=== PATIENT | female | born 1985 | race Caucasian/White ===

== ENCOUNTER 2019-10-09 11:28 | Outpatient (CLI) | payer MEDICAID ==
--- NOTE | 2019-10-09 13:00 | Non Stress Test Report ---
Non Stress Test Datetime Report Generated by CPN: 10/09/2019 13:00 DEMOGRAPHIC Test Number: 1 EGA NST: 34.3 INDICATION Indication for Study (NST) Other: Repeat NST and AMA MONITORING Monitor Explained: Monitor Explained; Test Explained; Patient Verbalized Understanding Time on Monitor: 10/09/2019 11:45 Time off Monitor: 10/09/2019 12:19 NST Duration: 34 NST INTERVENTIONS NST Interventions: PO Hydration Physician Notified NST: J Price CNm BABY A: [id number] BABY A Movement : Present Contraction Frequency : none FHR Baseline : 145 Accelerations : 15X15 Decelerations : None Variability : Moderate 6-25bpm NST Review: Meets Criteria for Reactive NST NST Review and Verified By : Sparkle Camp RNC NST Results: Reactive NST REPORT Report Trigger: Send Report
== END 2019-10-09 12:31 | disposition home or self-care (01) ==
LOC: LC 11:28
PROVIDERS: ATTEND Obstetrics & Gynecology
DX: O09.523 Supervision of elderly multigravida, third trimester (principal); O99.333 Smoking (tobacco) complicating pregnancy, third trimester; F17.210 Nicotine dependence, cigarettes, uncomplicated; Z3A.34 34 weeks gestation of pregnancy
CPT/HCPCS: 59025

== ENCOUNTER 2019-11-06 10:59 | Outpatient (CLI) | payer MEDICAID ==
--- NOTE | 2019-11-06 11:48 | Non Stress Test Report ---
Non Stress Test Datetime Report Generated by CPN: 11/06/2019 11:48 DEMOGRAPHIC EGA NST: 38.3 INDICATION Indication for Study (NST) Other: IUP @ 38.3 wks, AMA VITAL SIGNS Temperature - NST: 98.0 Pulse - NST: 85 RESP - NST: 16 NBPSYS NST: 128 NBPDIA NST: 68 MONITORING Monitor Explained: Monitor Explained; Test Explained; Patient Verbalized Understanding Time on Monitor: 11/06/2019 11:10 Time off Monitor: 11/06/2019 11:36 NST Duration: 26 NST INTERVENTIONS NST Interventions: PO Hydration; Reposition Patient Physician Notified NST: Munir Gooden, CNM BABY A: [id number] BABY A Movement : Present Contraction Frequency : 0 FHR Baseline : 140 Accelerations : 15X15 Decelerations : None Variability : Moderate 6-25bpm NST Review: Meets Criteria for Reactive NST NST Review and Verified By : [email or web address],rn NST Results: Reactive NST REPORT Report Trigger: Send Report
== END 2019-11-06 11:48 | disposition home or self-care (01) ==
LOC: LC 10:59
PROVIDERS: ATTEND Obstetrics & Gynecology Gynecology
DX: O10.913 Unspecified pre-existing hypertension complicating pregnancy, third trimester (principal); O09.523 Supervision of elderly multigravida, third trimester; O99.333 Smoking (tobacco) complicating pregnancy, third trimester; F17.210 Nicotine dependence, cigarettes, uncomplicated; Z3A.38 38 weeks gestation of pregnancy
CPT/HCPCS: 59025

== ENCOUNTER 2019-11-09 08:54 | Inpatient (IN) | payer MEDICAID ==
[2019-11-09] MEDS ORDERED: OXYTOCIN/0.9 % SODIUM CHLORIDE 30 UNIT/500 ML RTUINJ ONE (09:02)
[2019-11-09] MEDS ORDERED: MISOPROSTOL 0.2 MG TABLET ONE (09:02)
[2019-11-09] MEDS ORDERED: LIDOCAINE 1% INJ-PF (10 MG/ML) 30 ML SDV ONE (09:02)
[2019-11-09] MEDS ORDERED: OXYTOCIN/0.9 % SODIUM CHLORIDE 30 UNIT/500 ML RTUINJ IV PRN ×2 (09:02→20:02)
[2019-11-09] MEDS ORDERED: OXYTOCIN 10 UNIT/ML VIAL ONE (09:02)
[2019-11-09] MEDS ORDERED: RINGERS SOLUTION,LACTATED 1,000 ML IV ONE (09:02)
[2019-11-09 10:21] LABS: APPEARANCE,URINE SLIGHTLY-CLOUDY; BILIRUBIN,URINE NEGATIVE (NEGATIVE); GLUCOSE, URINE NEGATIVE (NEGATIVE); KETONES,URINE NEGATIVE (NEGATIVE); LEUKOCYTE ESTERASE,URINE TRACE (NEGATIVE); NITRITE,URINE NEGATIVE (NEGATIVE); PROTEIN,URINE 30 mg/dL (NEGATIVE); URINE SPECIFIC GRAVITY 1.019
[2019-11-09 10:34] LABS: COLOR,URINE YELLOW
[2019-11-09 10:45] LABS: URINE AMPHETAMINES SCREEN NEGATIVE; URINE BARBITURATES SCREEN NEGATIVE; URINE BENZODIAZEPINES SCREEN NEGATIVE; URINE COCAINE SCREEN NEGATIVE; URINE METHADONE SCREEN NEGATIVE; URINE PHENCYCLIDINE SCREEN NEGATIVE
[2019-11-09 10:55] LABS: URINE MARIJUANA (THC) SCREEN UNCONFIRMED POSITIVE
[2019-11-09 11:17] LABS: ABSOLUTE EOSINOPHILS # (AUTO) 0.1 10^3/uL (0.0-0.6); ABSOLUTE LYMPHOCYTES (AUTO) 2.7 10^3/uL (0.5-4.7); ABSOLUTE MONOCYTES (AUTO) 1.1 10^3/uL (0.1-1.4); ABSOLUTE NEUT (AUTO) 9.5 10^3/uL (1.7-8.2); BASOPHILS % (AUTO) 0.2 % (0-2); EOSINOPHILS % (AUTO) 1.1 % (0-6); HEMATOCRIT 34.9 % (36.0-47.0); HEMOGLOBIN 12.1 g/dL (12.0-15.5); LYMPHOCYTES % (AUTO) 20.2 % (13-45); MEAN CORPUSCULAR HEMOGLOBIN 32.5 pg (27.0-33.4); MEAN CORPUSCULAR HGB CONC 34.6 g/dL (32.0-36.0); MEAN CORPUSCULAR VOLUME 94 fl (80-97); MONOCYTES % (AUTO) 7.9 % (3-13); PLATELET COUNT 233 10^3/uL (150-450); RED BLOOD COUNT 3.72 10^6/uL (3.72-5.28); RED CELL DISTRIBUTION WIDTH 13.2 % (11.5-14.0); SEGMENTED NEUTROPHILS % (AUTO) 70.6 % (42-78); TOTAL CELLS COUNTED % (AUTO) 100 %; WHITE BLOOD COUNT 13.4 10^3/uL (4.0-10.5)
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
[2019-11-09] MEDS ORDERED: NALBUPHINE HCL INJ 10 MG/1 ML AMPULE IM ONE (16:04)
[2019-11-09] MEDS ORDERED: NALBUPHINE HCL INJ 10 MG/1 ML AMPULE ONE (16:05)
[2019-11-09] MEDS ORDERED: PROMETHAZINE HCL INJ 25 MG/1 ML VIAL ONE (16:05)
[2019-11-09] MEDS ORDERED: NALBUPHINE HCL INJ 10 MG/1 ML AMPULE IV ONE (16:05)
[2019-11-09] MEDS ORDERED: PROMETHAZINE HCL INJ 25 MG/1 ML VIAL IV ONE (16:06)
[2019-11-09] MEDS ORDERED: EPHEDRINE SULFATE INJ 50 MG/1 ML AMPULE ONE (18:30)
[2019-11-09] MEDS ORDERED: FENTANYL/BUPIVACAINE/NS/PF 0 MCG/0 ML RTUINJ EPI ONE (18:30)
[2019-11-09] MEDS ORDERED: ROPIVACAINE HCL 0.2% INJ/PF (2 MG/ML) 20 ML SDV ONE (18:30)
[2019-11-09] MEDS ORDERED: MAGNESIUM HYDROXIDE SUSP 30 ML UDCUP PO PRN (20:02)
[2019-11-09] MEDS ORDERED: BENZOCAINE/MENTHOL AEROSOL SPRAY 56 ML TOP PRN (20:02)
[2019-11-09] MEDS ORDERED: DIPHENHYDRAMINE HCL 25 MG CAPSULE PO PRN (20:02)
[2019-11-09] MEDS ORDERED: DIBUCAINE 1% OINTMENT 28 GM TP PRN (20:02)
[2019-11-09] MEDS ORDERED: GLYCERIN/WITCH HAZEL LEAF 1 EACH MED..WIPE TP PRN (20:02)
[2019-11-09] MEDS ORDERED: ACETAMINOPHEN WITH CODEINE #3 TABLET PO PRN ×2 (20:02)
[2019-11-09] MEDS ORDERED: PROMETHAZINE HCL 25 MG TABLET PO PRN (20:02)
[2019-11-09] MEDS ORDERED: ACETAMINOPHEN 650 MG SUPP.RECT PR PRN (20:02)
[2019-11-09] MEDS ORDERED: PROMETHAZINE HCL INJ 25 MG/1 ML VIAL IV PRN (20:02)
[2019-11-09] MEDS ORDERED: PROMETHAZINE HCL 25 MG SUPP.RECT PR PRN (20:02)
[2019-11-09] MEDS ORDERED: PSEUDOEPHEDRINE HCL 30 MG TABLET PO PRN (20:02)
[2019-11-09] MEDS ORDERED: DIPH/PERTUSS(ACELL)/TETANUS VAC/PF 0.5 ML SYR (>=10YO) IM PRN (20:02)
[2019-11-09] MEDS ORDERED: NA PHOS,M-B/NA PHOS,DI-BA (ADULT) 133 ML ENEMA PR PRN (20:02)
[2019-11-09] MEDS ORDERED: ZOLPIDEM TARTRATE 5 MG TABLET PO PRN (20:02)
[2019-11-09] MEDS ORDERED: MEASLES,MUMPS&RUBELLA VACC/PF 0.5 ML VIAL SUBCUT PRN (20:02)
--- NOTE | 2019-11-09 21:44 | Delivery Summary ---
Del Sum A-C Datetime Report Generated by CPN: 11/09/2019 21:43 DELIVERY PERSONNEL DELIVERY PERSONNEL: [id number] Delivery Doctor:: Baltazar Chowdhury MD Labor and Delivery Nurse:: Nilda De La Cruz RNcomposite science teacher Nurse:: Gloria Reynolds RN Denitrator/SOCIAL MEDIA ANALYST: Ana Luisa Iván, ST MATERNAL INFORMATION Delivery Anesthesia: None Medications After Delivery: Pitocin 30 Units in 500ml NS/D5W Estimated Blood Loss (ml): 250 Maternal Complications: None LABOR SUMMARY EDC: 11/17/2019 00:00 No. Babies in Womb: 1 Attempted: No LABOR INFORMATION Reason for Induction: Chronic Primary/Essential HTN Onset of Labor: 11/09/2019 12:55 Complete Dilatation: 11/09/2019 19:15 Oxytocin: Induction Group B Beta Strep: Negative Antibiotics # of Doses: 0 Antibiotics Time of Last Dose: n/a Name of Antibiotic Given: n/a Steroids Given: None Reason Steroids Not Administered: Not Applicable MEMBRANES Membranes Rupture Method: Artificial Rupture of Membranes: 11/09/2019 12:55 Length of Rupture (hr): 6.53 Amniotic Fluid Color: Clear Amniotic Fluid Amount: Moderate Amniotic Fluid Odor: Normal STAGES OF LABOR Stage 1 hr: 6 Stage 1 min: 20 Stage 2 hr: 0 Stage 2 min: 12 Stage 3 hr: 0 Stage 3 min: 12 Total Time in Labor hr: 6 Total Time in Labor min: 44 VAGINAL DELIVERY Episiotomy: None Laceration #1: Periurethral Laceration Extension #1: N/A Laceration #2: Perineal Laceration Extension #2: Second Degree Laceration #3: None Laceration Extension #3: N/A Laceration Repair: Yes Laceration Repair Note: Villa placed and the periurethral laceration was repaired with 3-0 chromic. This provided good hemostasis. The perineal laceration was closed in the usual fashion with a 3-0 chromic suture. Sponge Count Correct: Vaginal Sweep Performed Sharps Count Correct: Yes CSECTION DELIVERY Primary Indication: N/A Secondary Indication: N/A CSection Incidence: N/A Labor: N/A Elective: N/A CSection Incision: N/A BABY A INFORMATION Delivery Date/Time: 11/09/2019 19:27 Method of Delivery: Vaginal Nurse Controlled Delivery: No Born in Route : No : N/A Forceps: N/A Vacuum Extraction: N/A Shoulder Dystocia : No PRESENTATION/POSITION BABY A Presentation: Cephalic Cephalic Presentation: Vertex Vertex Position: Left Occipital Anterior Breech Presentation: N/A PLACENTA INFORMATION BABY A Placenta Delivery Time : 11/09/2019 19:39 Placenta Method of Delivery: Spontaneous Placenta Status: Delivered SCORES BABY A Heart Rate 1 min: >100 bpm Resp Effort 1 min: Good Cry Reflex Irritability 1 min: Cough or Sneeze or Pulls Away Muscle Tone 1 min: Active Motion Color 1 min: Body [place], Extremities Blue SCORE 1 MIN: 9 Heart Rate 5 min: >100 bpm Resp Effort 5 min: Good Cry Reflex Irritability 5 min: Cough or Sneeze or Pulls Away Muscle Tone 5 min: Active Motion Color 5 min: Body [place], Extremities Blue SCORE 5 MIN: 9 INFANT INFORMATION BABY A Gestational Age at Delivery: 38.6 Gestational Status: Early Term- 37- 38.6 Weeks Infant Outcome : Liveborn Condition : Stable Infant Sex: Male IDENTIFICATION BABY A Infant Verification Date/Time: 11/09/2019 20:03 ID Band Number: [id number] Mother's Name Verified: Yes Infant RN Verifying Infant: Lew Reynolds RN/ECarlos Colemank RN WEIGHT/LENGTH BABY A Infant Birthweight (gm): 3100 Infant Weight (lb): 6 Infant Weight (oz): 13 Infant Length (in): 21.00 Infant Length (cm): 53.34 CORD INFORMATION BABY A No. Cord Vessels: 3 Nuchal Cord : N/A Cord Blood Taken: Yes-For Storage (Mom's Blood type +) Suction: Mouth ASSESSMENT BABY A Infant Complications: None Physical Findings at Delivery: Within Normal Limits Infant Respirations: Appears Normal Skin to Skin: Yes Transferred To: Remains with Mother BABY B INFORMATION : N/A SIGNATURES Signature: with User ID: [email or web address] : I was personally available for consultation and serving as supervising physician for the MLP.
--- NOTE | 2019-11-09 21:44 | Birth Certificate Data ---
Cert Data Datetime Report Generated by CECILE: 11/09/2019 21:43 CERTIFICATE DATA 47a. Care: Yes (10/09/2019 11:49:Aissatou Johnson RN) 47b. Date of First Visit: 04/12/2019 00:00 (10/09/2019 11:49:Aissatou Johnson RN) 47c. Date of Last Visit: 11/06/2019 00:00 (10/09/2019 11:49:Aissatou Johnson RN) 47d. Number of Visits: 16 (10/09/2019 11:49:Aissatou Johnson RN) 48a. Number of Prev Live Births: 1 (10/09/2019 11:49:Aissatou Johnson RN) 48b. Now Livin (10/09/2019 11:49:Shanthi Hope RN) 48c. Live Births Now : 0 (10/09/2019 11:49:QS system process) 48d. Date of Last Live : 02/28/2009 00:00 (10/09/2019 11:49:Aissatou Johnson RN) 48e. Losses: 0 (10/09/2019 11:49:Aissatou Johnson RN) RISK FACTORS IN THIS 49a. Diabetes: No (10/09/2019 11:49:Shanthi Hope RN) 49b. Hypertension: No (10/09/2019 11:49:Shanthi Hope RN) Type of Hypertension: Chronic (10/09/2019 11:49:Aissatou Johnson RN) 49c. Previous Births: 0 (10/09/2019 11:49:Aissatou Johnson RN) Stillborns: No (10/09/2019 11:49:Shanthi Hope RN) IUGR: No (10/09/2019 11:49:Shanthi Hope RN) 49e. Infertility Treatment: No (10/09/2019 11:49:Shanthi Hope RN) 49f. Previous Cesareans: 0 (10/09/2019 11:49:Aissatou Johnson RN) Mother's Height 50b. Height Inches: 71 (11/09/2019 11:00:QS system process) Mother's Weight 51a. Pre- Weight: 215 (10/09/2019 11:49:Shanthi Hope RN) 51b. Weight at Time of Delivery: 222 (11/09/2019 11:00:QS system process) 52. Dt Last Normal Menses Began: 02/09/2019 00:00 (10/09/2019 11:49:Shanthi Hope RN) Infections Present/Treated 53a. Gonorrhea: No (10/09/2019 11:49:Shanthi Hope RN) Results this Hospital Visit : Negative (10/09/2019 11:49:Aissatou Johnson RN) 53b. Syphilis: No (10/09/2019 11:49:Shanthi Hope RN) Results this Hospital Visit: NONREACTIVE (11/09/2019 10:30:QS system process) 53c. Chlamydia: No (10/09/2019 11:49:Shanthi Hope RN) Results this Hospital Visit: Negative (10/09/2019 11:49:Aissatou Johnson RN) 53d. Hepatitis B: No (10/09/2019 11:49:Shanthi Hope RN) Results this Hospital Visit: Negative (10/09/2019 11:49:Aissatou Johnson RN) 53i. Date Tested: 04/12/2019 00:00 (10/09/2019 11:49:Aissatou Johnson RN) Obstetric Procedures 54a, b, c. Obstetric Procedures: Ultrasound; NST (10/09/2019 11:49:Shanthi Hope RN) Cigarette Smoking 55a. Packs: 1 (10/09/2019 11:49:Aissatou Johnson RN) 55b. Packs: 1 (10/09/2019 11:49:Aissatou Johnson RN) 55c. Packs: 1 (10/09/2019 11:49:Aissatou Johnson RN) 55d. Packs: 1 (10/09/2019 11:49:Aissatou Johnson RN) Onset of Labor 56a. PROM >12 Hrs: 6.53 (10/09/2019 11:49:QS system process) 56b. Precipitous Labor <3 Hrs: 6 (10/09/2019 11:49:QS system process) 56c. Prolonged Labor > 20 Hrs: 6 (10/09/2019 11:49:QS system process) 57a. Induction of Labor: Induction (10/09/2019 11:49:Aissatou Johnson RN) 57c. Non-Vertex Presentation A: Vertex (10/09/2019 11:49:Nghia Reynolds RN) 57d. Steroids - Lung Mat: None (10/09/2019 11:49:Aissatou Johnson RN) 57d. Steroids - Lung Mat: Not Applicable (10/09/2019 11:49:Aissatou Johnson RN) 57e. Antibiotics During Labor: n/a (10/09/2019 11:49:Aissatou Johnson RN) 57g. Moderate/Heavy Meconium: Clear (11/09/2019 12:55:Aissatou Johnson RN) 57h. Intolerance of Labor: N/A (10/09/2019 11:49:Gloria Reynolds RN) : N/A (10/09/2019 11:49:Gloria Reynolds RN) Method of Delivery 58a. Forceps - Unsuccessful A: N/A (10/09/2019 11:49:Gloria Reynolds RN) 58b. Vacuum - Unsuccessful A: N/A (10/09/2019 11:49:Gloria Reynolds RN) 58c. Presentation at 58c. Presentation at - A : Vertex (10/09/2019 11:49:Nghia Reynolds RN) 58c. Presentation at - A : N/A (10/09/2019 11:49:Nghia Reynolds RN) 58c. Presentation at - A : Cephalic (10/09/2019 11:49:Nghia Reynolds RN) Final Route and Method of Del 58d. Baby A Route/Delivery: Vaginal (10/09/2019 11:49:Gloria Reynolds RN) 58e. Trial of Labor Attempted: No (10/09/2019 11:49:Aissatou Johnson RN) 58e. Trial of Labor Attempted A: N/A (10/09/2019 11:49:Aissatou Johnson RN) 58e. Trial of Labor Attempted B: N/A (10/09/2019 11:49:Aissatou Johnosn RN) Maternal Morbidity 59b. 3rd or 4th Degree Lacs: Periurethral (10/09/2019 11:49:Baltazar Chowdhury MD (KARLEE)) Birthweight Baby A: 3100 (10/09/2019 11:49:Gloria Reynolds RN) 60a. Pounds : 6 (10/09/2019 11:49:QS system process) 60b. Ounces: 13 (10/09/2019 11:49:QS system process) 61. GA at Delivery Baby A: 38.6 (10/09/2019 11:49:Gloria Reynolds RN) : Early Term- 37- 38.6 Weeks (10/09/2019 11:49:QS system process) 62a. 5 Minute Baby A: 9 (10/09/2019 11:49:QS system process)
[2019-11-09] MEDS: FAMOTIDINE 20 MG TABLET PO SCH (22:31)
[2019-11-09] MEDS: IBUPROFEN 800 MG TABLET PO SCH (22:31)
[2019-11-10] MEDS: MISOPROSTOL 0.2 MG TABLET PO SCH ×4 (04:13→21:37)
[2019-11-10] MEDS: IBUPROFEN 800 MG TABLET PO SCH ×3 (06:49→21:37)
[2019-11-10 07:22] LABS: HEMATOCRIT 28.2 % (36.0-47.0); MEAN CORPUSCULAR HEMOGLOBIN 32.8 pg (27.0-33.4); MEAN CORPUSCULAR HGB CONC 35.3 g/dL (32.0-36.0); MEAN CORPUSCULAR VOLUME 93 fl (80-97); PLATELET COUNT 271 10^3/uL (150-450); RED BLOOD COUNT 3.03 10^6/uL (3.72-5.28); RED CELL DISTRIBUTION WIDTH 13.3 % (11.5-14.0); WHITE BLOOD COUNT 21.6 10^3/uL (4.0-10.5)
[2019-11-10 07:24] LABS: HEMOGLOBIN 9.9 g/dL (12.0-15.5)
[2019-11-10] MEDS: SENNOSIDES/DOCUSATE 8.6-50 MG 1 EACH TABLET PO SCH (09:36)
[2019-11-10] MEDS: FAMOTIDINE 20 MG TABLET PO SCH ×2 (09:36→21:37)
[2019-11-10] MEDS: PRENATAL VITAMIN W DHA CAPSULE PO SCH (09:37)
[2019-11-10] MEDS: DOCUSATE SODIUM 100 MG CAPSULE PO SCH ×2 (09:37→18:42)
[2019-11-10] MEDS: FERROUS SULFATE 325 MG TABLET PO SCH ×2 (09:37→18:42)
--- NOTE | 2019-11-10 10:23 | PDOC PROGRESS REPORT ---
Subjective-OB Progress Note for:: 11/10/19 Subjective: Pt doing well, no concerns. She reports light bleeding, reg diet and voiding without difficulty. Physical Exam (OB) Vital Signs: Temp Pulse Resp BP Pulse Ox 98.5 F 96 16 120/71 99 11/10/19 07:40 11/10/19 07:40 11/10/19 07:40 11/10/19 07:40 11/10/19 07:40 Intake & Output 11/09/19 11/10/19 11/11/19 06:59 06:59 06:59 Intake Total 500 Output Total 265 Balance -265 500 Weight 101.1 kg - PIH/Pre-Eclampsia DTR's: 2 + Clonus: Negative Headache: Absent Epigastric Pain: No Visual Changes: No - Maternal Morbidity 59. Maternal Morbidity (serious complications experinced by the mother as sociated with labor and delivery: None of the above - Lochia Lochia Amount: Heavy >50 ml Lochia Color: Rubra/Red - Abdomen Description: Soft, Round Hernia Present: No Fundal Description: Firm, Midline Fundal Height: u/u - u/2 Objective-Diagnostic Laboratory: 11/10/19 06:59 11/09/19 11/09/19 11/09/19 09:00 10:30 10:30 WBC 13.4 H RBC 3.72 Hgb 12.1 Hct 34.9 L MCV 94 MCH 32.5 MCHC 34.6 RDW 13.2 Plt Count 233 Seg Neutrophils % 70.6 Urine Color YELLOW Urine Appearance SLIGHTLY-CLOUDY Urine pH 6.0 Ur Specific [place] 1.019 Urine Protein 30 H Urine Glucose (UA) NEGATIVE Urine Ketones NEGATIVE Urine Blood NEGATIVE Urine Nitrite NEGATIVE Ur Leukocyte Esterase TRACE H Blood Type A POSITIVE Antibody Screen NEGATIVE 11/10/19 06:59 WBC 21.6 H RBC 3.03 L Hgb 9.9 L D Hct 28.2 L MCV 93 MCH 32.8 MCHC 35.3 RDW 13.3 Plt Count 271 Seg Neutrophils % Urine Color Urine Appearance Urine pH Ur Specific [place] Urine Protein Urine Glucose (UA) Urine Ketones Urine Blood Urine Nitrite Ur Leukocyte Esterase Blood Type Antibody Screen Assessment and Plan(PN) - Assessment and Plan (1) Vaginal delivery Is this a current diagnosis for this admission?: Yes (2) Encounter for planned induction of labor Is this a current diagnosis for this admission?: Yes (3) Hypertension affecting in third trimester Is this a current diagnosis for this admission?: Yes - Time Spent with Patient Time with patient: Less than 15 minutes Smoking Education Provided: Over 3 minutes Medications reviewed and adjusted accordingly: Yes - Disposition Anticipated Discharge Disposition: Home, Self Care Anticipated Discharge Timeframe: within 24 hours
[2019-11-11] MEDS: IBUPROFEN 800 MG TABLET PO SCH (05:08)
--- NOTE | 2019-11-11 08:04 | PDOC DISCHARGE SUMMARY ---
Impression - Admit/DC Date/PCP Admission Date/Primary Care Provider: 11/09/19 08:54 TROY SAAB MD Discharge Date: 11/11/19 - Discharge Diagnosis (1) Vaginal delivery Is this a current diagnosis for this admission?: Yes (2) Encounter for planned induction of labor Is this a current diagnosis for this admission?: Yes (3) Hypertension affecting in third trimester Is this a current diagnosis for this admission?: Yes - Additional Information Resuscitation Status: Full Code Discharge Diet: Regular Discharge Activity: Balance Activity w/Rest, Pelvic Rest Referrals: TROY SAAB MD [Primary Care Provider] - Home Medications: Cholecalciferol (Vitamin D3) [Vitamin D3 1000 Unit Tablet] 1,000 unit PO DAILY 10/09/19 Labetalol HCl [Normodyne 200 mg Tablet] 200 mg PO Q12 10/09/19 Vit No.130/Iron/Folic [ Vitamins] 1 each PO DAILY 10/09/19 HPI Gestational Age: 38.6 Reason(s) for Admission: Induction of Labor, Medical Complications, PIH Procedures: NST Intrapartum Procedure(s): Spontaneous Vaginal Delivery Complication(s): Laceration-Periurethral Laceration-Degree: 2nd Hospital Course 59. Maternal Morbidity (serious complications experinced by the mother associated with labor and delivery: None of the above Results Laboratory Results: WBC 21.6 10^3/uL (4.0-10.5) H 11/10/19 06:59 RBC 3.03 10^6/uL (3.72-5.28) L 11/10/19 06:59 Hgb 9.9 g/dL (12.0-15.5) L D 11/10/19 06:59 Hct 28.2 % (36.0-47.0) L 11/10/19 06:59 MCV 93 fl (80-97) 11/10/19 06:59 MCH 32.8 pg (27.0-33.4) 11/10/19 06:59 MCHC 35.3 g/dL (32.0-36.0) 11/10/19 06:59 RDW 13.3 % (11.5-14.0) 11/10/19 06:59 Plt Count 271 10^3/uL (150-450) 11/10/19 06:59 Lymph % (Auto) 20.2 % (13-45) 11/09/19 10:30 [place] % (Auto) 7.9 % (3-13) 11/09/19 10:30 Eos % (Auto) 1.1 % (0-6) 11/09/19 10:30 Baso % (Auto) 0.2 % (0-2) 11/09/19 10:30 Absolute Neuts (auto) 9.5 10^3/uL (1.7-8.2) H 11/09/19 10:30 Absolute Lymphs (auto) 2.7 10^3/uL (0.5-4.7) 11/09/19 10:30 Absolute Monos (auto) 1.1 10^3/uL (0.1-1.4) 11/09/19 10:30 Absolute Eos (auto) 0.1 10^3/uL (0.0-0.6) 11/09/19 10:30 Absolute Basos (auto) 0.0 10^3/uL (0.0-0.2) 11/09/19 10:30 Seg Neutrophils % 70.6 % (42-78) 11/09/19 10:30 Urine Color YELLOW 11/09/19 09:00 Urine Appearance SLIGHTLY-CLOUDY 11/09/19 09:00 Urine pH 6.0 (5.0-9.0) 11/09/19 09:00 Ur Specific [place] 1.019 11/09/19 09:00 Urine Protein 30 mg/dL (NEGATIVE) H 11/09/19 09:00 Urine Glucose (UA) NEGATIVE mg/dL (NEGATIVE) 11/09/19 09:00 Urine Ketones NEGATIVE mg/dL (NEGATIVE) 11/09/19 09:00 Urine Blood NEGATIVE (NEGATIVE) 11/09/19 09:00 Urine Nitrite NEGATIVE (NEGATIVE) 11/09/19 09:00 Urine Bilirubin NEGATIVE (NEGATIVE) 11/09/19 09:00 Urine Urobilinogen 2.0 mg/dL (<2.0) H 11/09/19 09:00 Ur Leukocyte Esterase TRACE (NEGATIVE) H 11/09/19 09:00 Urine Ascorbic Acid NEGATIVE (NEGATIVE) 11/09/19 09:00 Urine Opiates Screen NEGATIVE 11/09/19 09:00 Urine Methadone Screen NEGATIVE 11/09/19 09:00 Ur Barbiturates Screen NEGATIVE 11/09/19 09:00 Ur Phencyclidine Scrn NEGATIVE 11/09/19 09:00 Ur Amphetamines Screen NEGATIVE 11/09/19 09:00 U Benzodiazepines Scrn NEGATIVE 11/09/19 09:00 Urine Cocaine Screen NEGATIVE 11/09/19 09:00 U Marijuana (THC) Screen UNCONFIRMED POSITIVE 11/09/19 09:00 RPR NONREACTIVE (NONREACTIVE) 11/09/19 10:30 Blood Type A POSITIVE 11/09/19 10:30 Antibody Screen NEGATIVE 11/09/19 10:30 Plan Plan of Treatment: f/u at [facility] 4 wks Time Spent: Less than 30 Minutes
[2019-11-11 08:13] VITALS: BP 128/76
[2019-11-11] MEDS: PRENATAL VITAMIN W DHA CAPSULE PO SCH (11:06)
[2019-11-11] MEDS: DOCUSATE SODIUM 100 MG CAPSULE PO SCH (11:07)
[2019-11-11] MEDS: FAMOTIDINE 20 MG TABLET PO SCH (11:07)
[2019-11-11] MEDS: SENNOSIDES/DOCUSATE 8.6-50 MG 1 EACH TABLET PO SCH (11:07)
[2019-11-11] MEDS: FERROUS SULFATE 325 MG TABLET PO SCH (11:07)
== END 2019-11-11 14:40 | disposition home or self-care (01) | DRG 807 ==
LOC: LR 08:54 → 2S 22:10
PROVIDERS: ADMIT Obstetrics & Gynecology; ATTEND Obstetrics & Gynecology
PROC: 10E0XZZ Delivery of Products of Conception, External Approach (ICD-10-PCS; principal; 2019-11-09)
PROC: 0KQM0ZZ Repair Perineum Muscle, Open Approach (ICD-10-PCS; 2019-11-09)
PROC: 0UQMXZZ Repair Vulva, External Approach (ICD-10-PCS; 2019-11-09)
DX: O10.02 Pre-existing essential hypertension complicating childbirth (principal); Z37.0 Single live birth; O99.334 Smoking (tobacco) complicating childbirth; O70.1 Second degree perineal laceration during delivery; O71.82 Other specified trauma to perineum and vulva; F17.210 Nicotine dependence, cigarettes, uncomplicated; O99.344 Other mental disorders complicating childbirth; F41.9 Anxiety disorder, unspecified; F43.10 Post-traumatic stress disorder, unspecified; O99.52 Diseases of the respiratory system complicating childbirth; Z3A.38 38 weeks gestation of pregnancy
CPT/HCPCS: 36415; 80307; 80349; 81005; 85025; 85027; 86592; 86850; 86900; 86901; C1758; G0480; J2300; J2550; J2590; J2795; J3010; J3490